=== PATIENT | male | born 1950 | race Caucasian/White ===

== ENCOUNTER 2021-09-22 07:42 | Inpatient (IN) | payer MEDICARE ==
[~2021-09-22] VITALS: Ht 172.7 cm; Wt 86.3 kg
[~2021-09-22 07:42] MED LIST: CYCLOBENZAPRINE10 MG PO; PREDNISONE 20MG20 MG PO
[2021-09-22 10:04] LABS: BASOPHIL 0.1 % (0-2); EOSINOPHIL 0.1 % (0-7); HCT 42.3 % (42.0-52.0); LYMPHOCYTE 6.8 % (15-48); MCH 28.9 pg (25.0-31.0); MCHC 33.1 g/dL (32.0-36.0); MCV 87.2 fL (78.0-100.0); MONOCYTE 7.4 % (0-12); MPV 11.2 fL (6.0-9.5); NEUTROPHIL 84.9 % (41-80); NRBC 0; PLT 219 K/uL (150-400); RBC 4.85 M/uL (4.70-6.00); WBC 8.4 K/uL (4.0-10.5)
[2021-09-22 10:07] LABS: INR 1.07 (0.9-1.2); PROTHROMBIN TIME 13.3 SECONDS (11.8-13.4); PTT 33.9 SECONDS (24.4-34.7)
[2021-09-22 10:24] LABS: LACTIC ACID 0.9 mmol/L (0.4-1.9)
[2021-09-22 11:14] LABS: IRON % SATURATION 32.7 %SAT (20-50)
[2021-09-22 11:41] LABS: CREATININE 1.83 mg/dL (0.67-1.17); POTASSIUM 3.2 mmol/L (3.5-5.1)
[2021-09-22 11:42] LABS: ALBUMIN 3.1 g/dL (3.4-5.0); BILIRUBIN - TOTAL 0.9 mg/dL (0.2-1.0); C-REACTIVE PROTEIN 8.8 mg/dL (<=0.90); MAGNESIUM 3.1 mg/dL (1.8-2.4); PRO-BNP 27 pg/mL (<125); TOTAL PROTEIN 8.1 g/dL (6.4-8.2)
[2021-09-22 13:14] LABS: BILIRUBIN NEGATIVE (NEGATIVE); BLOOD 1+ Ery/uL (NEGATIVE); CLARITY CLEAR (CLEAR); COLOR YELLOW (YELLOW); GLUCOSE (U) NORMAL (NORMAL); LEUKOCYTES NEGATIVE Leu/uL (NEGATIVE); NITRITE NEGATIVE (NEGATIVE); PROTEIN NEGATIVE (NEGATIVE); UROBILINOGEN 0.2 mg/dL (0.2-1.0); pH 5.5 (5.0-9.0)
[2021-09-22 13:21] LABS: URINARY WBC RARE
[2021-09-22 13:22] LABS: BACTERIA TRACE
[2021-09-22 15:39] LABS: CREATININE 1.41 mg/dL (0.67-1.17); MAGNESIUM 3.4 mg/dL (1.8-2.4); POTASSIUM 3.8 mmol/L (3.5-5.1)
[2021-09-22] MEDS ORDERED: FLOMAX0.4 MG PO (18:41)
[2021-09-22] MEDS ORDERED: PRILOSEC20 MG PO (18:41)
[2021-09-23 06:47] LABS: BASOPHIL 0.2 % (0-2); EOSINOPHIL 0.2 % (0-7); HCT 37.5 % (42.0-52.0); HGB 12.4 g/dl (13.2-18.0); LYMPHOCYTE 12.8 % (15-48); MCH 28.8 pg (25.0-31.0); MCHC 33.1 g/dL (32.0-36.0); MCV 87.2 fL (78.0-100.0); MONOCYTE 10.4 % (0-12); MPV 10.8 fL (6.0-9.5); NEUTROPHIL 75.7 % (41-80); NRBC 0; PLT 205 K/uL (150-400); RDW 12.9 % (11.5-14.0); WBC 5.8 K/uL (4.0-10.5)
[2021-09-23 07:20] LABS: CREATININE 1.07 mg/dL (0.67-1.17); POTASSIUM 3.9 mmol/L (3.5-5.1)
[2021-09-23 07:34] LABS: MAGNESIUM 2.7 mg/dL (1.8-2.4)
[2021-09-24 06:41] LABS: BASOPHIL 0.2 % (0-2); EOSINOPHIL 0 % (0-7); HCT 35.9 % (42.0-52.0); HGB 11.9 g/dl (13.2-18.0); LYMPHOCYTE 13.2 % (15-48); MCH 28.7 pg (25.0-31.0); MCHC 33.1 g/dL (32.0-36.0); MCV 86.5 fL (78.0-100.0); MONOCYTE 3.8 % (0-12); MPV 10.3 fL (6.0-9.5); NEUTROPHIL 80.4 % (41-80); NRBC 0; PLT 203 K/uL (150-400); RBC 4.15 M/uL (4.70-6.00); RDW 12.8 % (11.5-14.0); WBC 4.2 K/uL (4.0-10.5)
[2021-09-24 07:10] LABS: CREATININE 0.95 mg/dL (0.67-1.17); MAGNESIUM 2.2 mg/dL (1.8-2.4); POTASSIUM 3.7 mmol/L (3.5-5.1)
[2021-09-24] MEDS ORDERED: LIPITOR20 MG PO (09:10)
[2021-09-24] MEDS ORDERED: NORVASC5 MG PO (09:10)
[2021-09-24] MEDS ORDERED: LISINOPRIL-HCT1 EAC2 PO (09:11)
[2021-09-24] MEDS ORDERED: FLEXERIL5 MG PO (09:11)
== END 2021-09-24 16:50 | disposition home or self-care (01) | DRG 871 ==
LOC: FER 07:42 → FMS 15:42
PROVIDERS: Emergency Medicine; Nurse Practitioner; Nurse Practitioner Acute Care; ADMIT Internal Medicine
PROC: 8E0ZXY6 Isolation (ICD-10-PCS; principal; 2021-09-22)
PROC: XW0DXM6 Introduction of Baricitinib into Mouth and Pharynx, External Approach, New Technology Group 6 (ICD-10-PCS; 2021-09-23)
PROC: XW033E5 Introduction of Remdesivir Anti-infective into Peripheral Vein, Percutaneous Approach, New Technology Group 5 (ICD-10-PCS; 2021-09-23)
DX: A41.89 Other specified sepsis (principal); U07.1 COVID-19; J12.82 Pneumonia due to coronavirus disease 2019; N17.9 Acute kidney failure, unspecified; A08.39 Other viral enteritis; R65.20 Severe sepsis without septic shock; E86.1 Hypovolemia; E86.0 Dehydration; I95.1 Orthostatic hypotension; I10 Essential (primary) hypertension; G89.29 Other chronic pain; E83.41 Hypermagnesemia; Z98.1 Arthrodesis status; Z80.9 Family history of malignant neoplasm, unspecified; Z82.49 Family history of ischemic heart disease and other diseases of the circulatory system
CPT/HCPCS: 36415; 36600; 70450; 71250; 80048; 80053; 81001; 82550; 82728; 82803; 83540; 83550; 83605; 83615; 83690; 83735; 83880; 84145; 84443; 84484; 85025; 85610; 85730; 86140; 87040; 93005; 94640; 96372; 96374; C9399; J1100; J1650; J3475; J7030; J7050; U0002